=== PATIENT | female | born 1990 | race Caucasian/White ===

== ENCOUNTER → 2020-06-23 | Emergency (ER) | payer OTHER ==
[~2020-06-23] VITALS: Ht 162.6 cm; Wt 59.0 kg
[2020-06-23 08:21] VITALS: BP 129/79
--- NOTE | 2020-06-23 08:29 | NUR ---
[facility]
== END | disposition home or self-care (01) ==
LOC: ER 08:33
DX: S80.211A Abrasion, right knee, initial encounter (principal); Z02.89 Encounter for other administrative examinations; V49.49XA Driver injured in collision with other motor vehicles in traffic accident, initial encounter; Y93.89 Activity, other specified; Y92.488 Other paved roadways as the place of occurrence of the external cause; Y99.8 Other external cause status